=== PATIENT | male | born 1955 | race Two or more races ===

== ENCOUNTER 2017-12-09 15:38 | Inpatient (IN) | payer SELFPAY ==
[2017-12-09] MEDS ORDERED: ONDANSETRON HCL INJ/PF 4 MG/2 ML SDV IV ONE (15:53)
[2017-12-09] MEDS ORDERED: MORPHINE SULFATE 10 MG/ML INJ IV ONE (15:53)
[2017-12-09] MEDS ORDERED: NORMAL SALINE 1000 ML 1,000 ML IV ONE ×2 (15:53→18:56)
--- NOTE | 2017-12-09 15:54 | ER Document Report ---
ED General - General Stated Complaint: FALL/LEG PAIN Time Seen by Provider: 12/09/17 15:51 TRAVEL OUTSIDE OF THE [place] IN LAST 30 DAYS: No - HPI Notes: Patient is a 62-year-old male no significant past medical history aside from a bowel surgery when he was in the who presents to the ED complaining of right hip pain 2 days status post fall. Patient states that he tripped over a pipe and fell forward over a cabinet. Patient states he did not hit his head. Patient states that he was able to get assistance to his couch where he remained for the next couple days thinking that the pain would improve. EMS was called today and they noted that he was sitting in his own feces because he cannot get up to go the bathroom. Patient does live with his and 2 sons. Patient states that he did drink 1.5-2 beers today, but has not been eating or drinking anything else. He has not had any numbness or tingling associated. Denies any drug allergies. Denies any headache, fever, head injury, neck pain, changes in vision/speech/mentation/hearing, URI, sore throat, chest pain, palpitations, syncope, cough, shortness of breath, wheeze, dyspnea, abdominal pain, nausea/vomiting/diarrhea, urinary retention, dysuria, hematuria, loss of control of bowel or bladder, numbness/tingling, saddle anesthesia, muscle paralysis, or rash. Past Medical History - Social History Smoking Status: Current Every Day Smoker Family History: Reviewed & Not Pertinent Past Surgical History: Reports: Hx Bowel Surgery - 12 ft of bowel removed Review of Systems - Review of Systems -: Yes All other systems reviewed and negative Physical Exam - Notes Notes: PHYSICAL EXAMINATION: GENERAL: no acute distress. A&Ox4. Answers questions appropriately. Feces within his clothes, foul smell. HEAD: Atraumatic, normocephalic. EYES: Pupils equal round and reactive to light, extraocular movements intact, sclera anicteric, conjunctiva are normal. ENT: Nares patent and without discharge. oropharynx clear without exudates. No tonsilar hypertrophy or erythema. Moist mucous membranes. NECK: Normal range of motion, supple without lymphadenopathy LUNGS: Breath sounds clear to auscultation bilaterally and equal. No wheezes rales or rhonchi. HEART: Regular rate and rhythm without murmurs, rubs, gallops. ABDOMEN: Soft, nontender, nondistended abdomen. No guarding, no rebound. No masses appreciated. Normal bowel sounds present. No CVA tenderness bilaterally. Musculoskeletal: Rt hip: + deformity and swelling. + tenderness. LROM. Strength decreased due to pain. + mild tenderness to the mid thigh. N/v intact distal. No other bony tenderness to the LE. Extremities: No cyanosis, clubbing, or edema b/l. Peripheral pulses 2+. Capillary refill less than 3 seconds. NEUROLOGICAL: Cranial nerves grossly intact. Normal speech, normal gait. Normal sensory, motor exams (aside from above). PSYCH: Normal mood, normal affect. SKIN: Warm, Dry, normal turgor, no rashes or lesions noted. Course - Re-evaluation Re-evalutation: 12/09/17 15:45 I accompanied patient to radiology upon arrival with EMS noting a deformity to the right hip. Brief exam performed at that time. Extremity remains warm and N/V intact distal with 2+ pulses. + tenderness rt hip. Obvious rt hip fracture noted on raw image in radiology. Formal read pending. 12/09/17 15:55 Labs, IV meds, fluids ordered. 12/09/17 18:07 I did speak with Dr. St regarding this patient who accepted patient for admission to the surgical floor. He does not recommend any other further workup at this time. Pt in agreement with plan. - Laboratory Result Diagrams: 12/09/17 17:03 12/09/17 17:03 Laboratory results interpreted by me: 12/09/17 12/09/17 17:03 17:03 RBC 3.08 L Hgb 11.4 L Hct 32.5 L MCV 106 H MCH 36.9 H RDW 14.6 H Seg Neutrophils % 80.8 H Lymphocytes % 10.3 L Sodium 129.6 L Chloride 92 L Creatinine 0.43 L Direct Bilirubin 0.5 H Discharge - Discharge Clinical Impression: Fracture, intertrochanteric, right femur Qualifiers: Encounter type: initial encounter Fracture type: closed Fracture alignment: nondisplaced Qualified Code(s): S72.144A - Nondisplaced intertrochanteric fracture of right femur, initial encounter for closed fracture Condition: Stable Disposition: ADMITTED INPATIENT Admitting Provider: Surgicalist - Dr. St Unit Admitted: Surgical Floor
--- NOTE | 2017-12-09 16:20 | RADIOLOGY REPORT (SQ) ---
EXAM DESCRIPTION: FEMUR RIGHT COMPLETED DATE/TIME: 12/09/2017 4:11 pm REASON FOR STUDY: mp fall +deformity COMPARISON: None. NUMBER OF VIEWS: Two views. TECHNIQUE: Two radiographic images acquired of the right femur to include hip and knee in at least o ne projection. LIMITATIONS: None. FINDINGS: MINERALIZATION: Normal. BONES: Comminuted intratrochanteric right hip fracture is noted. Mid and distal femur are intact. SOFT TISSUES: No obvious swelling or foreign body. OTHER: No other significant finding. IMPRESSION: Comminuted intratrochanteric right hip fracture. TECHNICAL DOCUMENTATION: JOB ID: [id number] [employer]- All Rights Reserved Reading location - IP/workstation name: [email or web address]
--- NOTE | 2017-12-09 16:21 | RADIOLOGY REPORT (SQ) ---
EXAM DESCRIPTION: HIP RIGHT AP/LATERAL COMPLETED DATE/TIME: 12/09/2017 4:11 pm REASON FOR STUDY: mp s/p fall with deformity COMPARISON: None. NUMBER OF VIEWS: Two views. TECHNIQUE: AP pelvis and additional frog-leg view of the right hip. LIMITATIONS: None. FINDINGS: MINERALIZATION: Normal. RIGHT HIP: Intertrochanteric fracture. LEFT HIP: No fracture or dislocation. No worrisome bone lesions. PUBIS AND ISCHIUM: No fracture. PELVIS: No fracture. SACRUM: No fracture or dislocation. No worrisome bone lesions. LOWER LUMBAR SPINE: No fracture or dislocation. No worrisome bone lesions. No significant disc disea se. SOFT TISSUES: No findings. OTHER: No other significant finding. IMPRESSION: Intertrochanteric fracture of the right hip. TECHNICAL DOCUMENTATION: JOB ID: [id number] [employer]- All Rights Reserved Reading location - IP/workstation name: [email or web address]
--- NOTE | 2017-12-09 16:33 | RADIOLOGY REPORT (SQ) ---
EXAM DESCRIPTION: CHEST SINGLE VIEW COMPLETED DATE/TIME: 12/09/2017 4:22 pm REASON FOR STUDY: pre-op COMPARISON: None. EXAM PARAMETERS: NUMBER OF VIEWS: One view. TECHNIQUE: Single frontal radiographic view of the chest acquired. RADIATION DOSE: NA LIMITATIONS: None. FINDINGS: LUNGS AND PLEURA: No opacities, masses or pneumothorax. No pleural effusion. MEDIASTINUM AND HILAR STRUCTURES: No masses. Contour normal. HEART AND VASCULAR STRUCTURES: Heart normal in size. Normal vasculature. BONES: No acute findings. HARDWARE: None in the chest. OTHER: No other significant finding. IMPRESSION: NO ACUTE RADIOGRAPHIC FINDING IN THE CHEST. TECHNICAL DOCUMENTATION: JOB ID: [id number] [employer]- All Rights Reserved Reading location - IP/workstation name: [email or web address]
[2017-12-09 17:38] LABS: ABSOLUTE BASOPHILS # (AUTO) 0.1 10^3/uL (0.0-0.2); ABSOLUTE MONOCYTES (AUTO) 0.7 10^3/uL (0.1-1.4); ABSOLUTE NEUT (AUTO) 7.5 10^3/uL (1.7-8.2); BASOPHILS % (AUTO) 0.7 % (0-2); EOSINOPHILS % (AUTO) 0.3 % (0-6); HEMATOCRIT 32.5 % (37.9-51.0); HEMOGLOBIN 11.4 g/dL (13.5-17.0); LYMPHOCYTES % (AUTO) 10.3 % (13-45); MEAN CORPUSCULAR HEMOGLOBIN 36.9 pg (27.0-33.4); MEAN CORPUSCULAR HGB CONC 34.9 g/dL (32.0-36.0); MEAN CORPUSCULAR VOLUME 106 fl (80-97); MONOCYTES % (AUTO) 7.9 % (3-13); PLATELET COUNT 280 10^3/uL (150-450); RED BLOOD COUNT 3.08 10^6/uL (4.35-5.55); RED CELL DISTRIBUTION WIDTH 14.6 % (11.5-14.0); SEGMENTED NEUTROPHILS % (AUTO) 80.8 % (42-78); TOTAL CELLS COUNTED % (AUTO) 100 %; WHITE BLOOD COUNT 9.3 10^3/uL (4.0-10.5)
[2017-12-09 17:46] LABS: INTERNATIONAL RATION (INR) 0.94
[2017-12-09 17:47] LABS: PARTIAL THROMBOPLASTIN TIME 29.2 SEC (23.5-35.8)
--- NOTE | 2017-12-09 17:53 | EKG REPORT ---
SEVERITY:- BORDERLINE ECG - SINUS TACHYCARDIA BORDERLINE LEFT AXIS DEVIATION LOW VOLTAGE IN FRONTAL LEADS : Confirmed by: Brian Sanchez MD 09-Dec-2017 17:52:57
[2017-12-09 17:56] LABS: ALANINE AMINOTRANSFERASE 25 U/L (21-72); ALBUMIN 3.7 g/dL (3.5-5.0); ALCOHOL 37 mg/dL (NONE DETECTED); ALKALINE PHOSPHATASE 73 U/L (38-126); ANION GAP 14 (5-19); ASPARTATE AMINO TRANSFERASE 29 U/L (17-59); BILIRUBIN,DIRECT 0.5 mg/dL (0.0-0.4); BILIRUBIN,TOTAL 1.2 mg/dL (0.2-1.3); BLOOD UREA NITROGEN 7 mg/dL (7-20); CALCIUM 8.8 mg/dL (8.4-10.2); CARBON DIOXIDE 24 mmol/L (22-30); CHLORIDE 92 mmol/L (98-107); GLUCOSE 100 mg/dL (75-110); POTASSIUM 3.9 mmol/L (3.6-5.0); SODIUM 129.6 mmol/L (137-145); TOTAL PROTEIN 7.4 g/dL (6.3-8.2)
[2017-12-09] MEDS ORDERED: HYDROMORPHONE HCL INJ/PF 2 MG/ML AMPULE IV ONE (18:10)
[2017-12-09 18:42] LABS: APPEARANCE,URINE CLEAR; BILIRUBIN,URINE SMALL (NEGATIVE); COLOR,URINE AMBER; GLUCOSE, URINE NEGATIVE (NEGATIVE); KETONES,URINE TRACE mg/dL (NEGATIVE); LEUKOCYTE ESTERASE,URINE NEGATIVE (NEGATIVE); NITRITE,URINE NEGATIVE (NEGATIVE); PROTEIN,URINE NEGATIVE (NEGATIVE)
[2017-12-09] MEDS ORDERED: NORMAL SALINE 1000 ML 1,000 ML IV PRN (18:56)
[2017-12-09 18:58] LABS: URINE AMPHETAMINES SCREEN NEGATIVE; URINE BARBITURATES SCREEN NEGATIVE; URINE BENZODIAZEPINES SCREEN NEGATIVE; URINE COCAINE SCREEN NEGATIVE; URINE MARIJUANA (THC) SCREEN NEGATIVE; URINE METHADONE SCREEN NEGATIVE; URINE PHENCYCLIDINE SCREEN NEGATIVE
[2017-12-09] MEDS ORDERED: ONDANSETRON 4 MG TAB.RAPDIS SL PRN (20:50)
[2017-12-10] MEDS: RINGERS SOLUTION,LACTATED 1,000 ML IV PRN ×3 (00:50→19:56)
--- NOTE | 2017-12-10 07:05 | PDOC H&P ---
History of Present Illness Admission Date/PCP: 12/09/17 18:25 History of Present Illness: CIRILO VIEIRA is a 62 year old male Patient is a 62-year-old white male with a noncontributory past medical history who tripped and fell onto the ground and sustained a right hip injury. 2 days later he was brought to the emergency room where a right intratrochanteric femur fracture was identified. He is admitted to the orthopedic service for fracture management. Past Medical History Medical History: None Psychiatric Medical History: Denies: Depression Past Surgical History Past Surgical History: Reports: None Social History Information Source: Patient, [facility] Records Smoking Status: Current Every Day Smoker Number of Years Smokin Last Time Smoked: 12/09/2017 Frequency of Alcohol Use: Occasional Hx Recreational Drug Use: No - denies Hx Prescription Drug Abuse: No - denies Family History Family History: Reviewed & Not Pertinent Parental Family History Reviewed: No Children Family History Reviewed: No Sibling(s) Family History Reviewed.: No Medication/Allergy Home Medications: No Home Medications 12/09/17 Allergies/Adverse Reactions: No Known Allergies Allergy (Unverified 12/09/17 19:08) Review of Systems All systems: as per [facility] Physical Exam Vital Signs: Temp Pulse Resp BP Pulse Ox 36.8 C 126 H 18 125/85 98 12/09/17 23:09 12/09/17 23:09 12/09/17 23:09 12/09/17 23:09 12/09/17 23:09 Intake & Output 12/09/17 12/10/17 12/11/17 06:59 06:59 06:59 Intake Total 1360 Output Total 550 Balance 810 Weight 68.8 kg Physical Exam: The patient is a thin disheveled appearing middle-aged white male lying in a hospital bed in minor distress. Right lower extremity has a leg length discrepancy and angular deformity. Distal neurovascular examination is intact. General appearance: PRESENT: mild distress Head exam: PRESENT: normocephalic Respiratory exam: PRESENT: unlabored Cardiovascular exam: PRESENT: RRR Pulses: PRESENT: +1 pedal pulses bilateral Vascular exam: PRESENT: normal capillary refill GI/Abdominal exam: PRESENT: soft Rectal exam: PRESENT: deferred Musculoskeletal exam: PRESENT: other - Lower extremity leg length discrepancy and rotational deformity Neurological exam: PRESENT: alert, awake, oriented to person, oriented to place , oriented to time, oriented to situation. ABSENT: motor sensory deficit Psychiatric exam: PRESENT: appropriate affect, normal mood. ABSENT: homicidal ideation, suicidal ideation Skin exam: PRESENT: dry, intact, warm. ABSENT: cyanosis, rash Results Impressions: Femur X-Ray 12/09/17 00:00 IMPRESSION: Comminuted intratrochanteric right hip fracture. Hip/Pelvis X-Ray 12/09/17 00:00 IMPRESSION: Intertrochanteric fracture of the right hip. Chest X-Ray 12/09/17 15:51 IMPRESSION: NO ACUTE RADIOGRAPHIC FINDING IN THE CHEST. Status: Imported from PACS Assessment & Plan - Diagnosis (1) Fracture, intertrochanteric, right femur Qualifiers: Encounter type: initial encounter Fracture type: closed Fracture alignment: nondisplaced Qualified Code(s): S72.144A - Nondisplaced intertrochanteric fracture of right femur, initial encounter for closed fracture Is this a current diagnosis for this admission?: Yes Plan: Plan for an open reduction internal fixation under choice anesthesia - Time Time Spent: 50 to 70 Minutes Anticipated discharge: Home with Homehealth Within: within 24 hours
[2017-12-10] MEDS ORDERED: CEFAZOLIN 2 GM/D5W RTU 2 GM/50 ML RTUPB IV PRN (07:14)
[2017-12-10] MEDS ORDERED: CEFAZOLIN SODIUM 2 GM in DEXTROSE 5%-WATER 100 ML IV PRN (07:16)
[2017-12-10] MEDS: MORPHINE SULFATE 10 MG/ML INJ IV PRN ×3 (07:50→19:49)
[2017-12-10] MEDS ORDERED: MIDAZOLAM 2 MG/2 ML INJ ONE (09:24)
[2017-12-10] MEDS ORDERED: PROPOFOL INJ 200 MG/20 ML VIAL IV ONE (09:25)
[2017-12-10] MEDS ORDERED: FENTANYL CITRATE INJ/PF 100 MCG/2 ML AMPUL ONE (09:25)
[2017-12-10] MEDS ORDERED: EPHEDRINE SULFATE INJ 50 MG/1 ML AMPULE ONE (09:26)
[2017-12-10] MEDS ORDERED: BUPIVACAINE HCL/DEX-WATER/PF 15 MG/2 ML AMPULE ONE (09:28)
--- NOTE | 2017-12-10 10:46 | Operative Report ---
Operative Report DATE OF SURGERY: 12/10/17 PREOPERATIVE DIAGNOSIS: Right intertrochanteric femur fracture OPERATION: ORIF right hip fracture SURGEON: ODILON ESCAMILLA ANESTHESIA: Spinal ESTIMATED BLOOD LOSS: 50 PROCEDURE: With the patient supine on the operative table the right lower extremities prepped and draped in a sterile fashion. Percutaneously pin is placed through the greater trochanter down the femoral diaphysis. This position was checked with fluoroscopy and felt to be adequate. Combined reamer was then used to fashion a cortical opening. A ball-tipped guide see placed down the femur and the femoral depth measured to be 420 mm. Subsequently [employer] gamma 3 nail 420 mm x 11 mm x 1 25 is advanced over the ball-tipped guide see to an appropriate depth the proximal interlock. A 100 mm proximal interlock is placed. It is locked from above. A 57.5 mm distal interlock was placed under fluoroscopic guidance. The fracture reduction and the hardware placement are again checked fluoroscopically and felt to be adequate. The wounds are irrigated. The closure was interrupted Vicryl followed by alonzo. A sterile compressive dressing was applied and patient's return to PACU in satisfactory condition.
[2017-12-10] MEDS ORDERED: RINGERS SOLUTION,LACTATED 1,000 ML IV PRN (10:57)
[2017-12-10] MEDS ORDERED: FENTANYL CITRATE INJ/PF 100 MCG/2 ML AMPUL IV PRN ×3 (11:03)
[2017-12-10] MEDS ORDERED: OXYCODONE-ACETAMINOPHEN 5-325 MG TABLET PO PRN ×2 (11:03)
[2017-12-10] MEDS ORDERED: DIPHENHYDRAMINE HCL 50 MG/ML VIAL IV PRN (11:03)
[2017-12-10] MEDS ORDERED: PROMETHAZINE HCL INJ 25 MG/1 ML VIAL IV PRN ×2 (11:03)
[2017-12-10] MEDS ORDERED: MEPERIDINE HCL/PF INJ 25 MG/1 ML DISP.SYRIN IV PRN (11:03)
--- NOTE | 2017-12-10 12:59 | RADIOLOGY REPORT (SQ) ---
EXAM DESCRIPTION: NO CHG FLUORO; HIP IN OPERATING RM COMPLETED DATE/TIME: 12/10/2017 12:27 pm REASON FOR STUDY: ORIF RT HIP ASST WITH FLUORO IN OR COMPARISON: 12/09/2017. FLUOROSCOPY TIME: 0.9 minutes. 5 images saved to PACS. TECHNIQUE: Intra-operative images acquired during surgical procedure to evaluate progress. NUMBER OF IMAGES: 5 images. LIMITATIONS: None. FINDINGS: Surgical fixation of the right hip fracture with placement of hardware. IMPRESSION: IMAGE(S) OBTAINED DURING PROCEDURE. COMMENT: Quality ID 145: Final reports for procedures using fluoroscopy that document radiation exp osure indices, or exposure time and number of fluorographic images (if radiation exposure indices are not available) Please consult full operative report of the attending physician for description of the procedure. TECHNICAL DOCUMENTATION: JOB ID: [id number] [employer]- All Rights Reserved Reading location - IP/workstation name: [email or web address]
--- NOTE | 2017-12-10 12:59 | RADIOLOGY REPORT (SQ) ---
EXAM DESCRIPTION: NO CHG FLUORO; HIP IN OPERATING RM COMPLETED DATE/TIME: 12/10/2017 12:27 pm REASON FOR STUDY: ORIF RT HIP ASST WITH FLUORO IN OR COMPARISON: 12/09/2017. FLUOROSCOPY TIME: 0.9 minutes. 5 images saved to PACS. TECHNIQUE: Intra-operative images acquired during surgical procedure to evaluate progress. NUMBER OF IMAGES: 5 images. LIMITATIONS: None. FINDINGS: Surgical fixation of the right hip fracture with placement of hardware. IMPRESSION: IMAGE(S) OBTAINED DURING PROCEDURE. COMMENT: Quality ID [id number]: Final reports for procedures using fluoroscopy that document radiation exp osure indices, or exposure time and number of fluorographic images (if radiation exposure indices are not available) Please consult full operative report of the attending physician for description of the procedure. TECHNICAL DOCUMENTATION: JOB ID: [id number] [employer]- All Rights Reserved Reading location - IP/workstation name: [email or web address]
[2017-12-10] MEDS ORDERED: IBUPROFEN 800 MG in NORMAL SALINE 250 ML IV SCH (14:00)
[2017-12-10] MEDS: IBUPROFEN 800 MG in DEXTROSE 5%-WATER 250 ML IV SCH ×2 (14:51→22:23)
[2017-12-10] MEDS ORDERED: OXYCODONE HCL IR 5 MG TABLET ONE (15:09)
[2017-12-10] MEDS: CEFAZOLIN SODIUM 2 GM in DEXTROSE 5%-WATER 100 ML IV SCH ×2 (15:10→21:06)
[2017-12-10] MEDS: OXYCODONE HCL IR 5 MG TABLET PO PRN (23:53)
[2017-12-11] MEDS: OXYCODONE HCL IR 5 MG TABLET PO PRN ×2 (05:56→18:56)
[2017-12-11] MEDS: IBUPROFEN 800 MG in DEXTROSE 5%-WATER 250 ML IV SCH ×3 (05:56→21:24)
[2017-12-11 06:07] LABS: HEMOGLOBIN 10.1 g/dL (13.5-17.0); MEAN CORPUSCULAR HEMOGLOBIN 38.1 pg (27.0-33.4); MEAN CORPUSCULAR HGB CONC 36.1 g/dL (32.0-36.0); MEAN CORPUSCULAR VOLUME 106 fl (80-97); PLATELET COUNT 242 10^3/uL (150-450); RED BLOOD COUNT 2.65 10^6/uL (4.35-5.55); RED CELL DISTRIBUTION WIDTH 15.7 % (11.5-14.0); WHITE BLOOD COUNT 7.5 10^3/uL (4.0-10.5)
[2017-12-11 06:25] LABS: ANION GAP 8 (5-19); BLOOD UREA NITROGEN 5 mg/dL (7-20); CALCIUM 8.3 mg/dL (8.4-10.2); CARBON DIOXIDE 25 mmol/L (22-30); CHLORIDE 99 mmol/L (98-107); GLUCOSE 115 mg/dL (75-110); POTASSIUM 3.9 mmol/L (3.6-5.0); SODIUM 132.2 mmol/L (137-145)
--- NOTE | 2017-12-11 07:21 | PDOC PROGRESS REPORT ---
Subjective Progress Note for:: 12/11/17 Reason For Visit: RIGHT HIP FRACTURE 62-year-old white male postop day 1 from open reduction internal fixation of a right intertrochanteric femur fracture. Patient with minimal complaints this morning. No physical therapy yesterday. Physical Exam Vital Signs: Temp Pulse Resp BP Pulse Ox 37.5 C 114 H 18 120/77 96 12/10/17 20:06 12/10/17 23:41 12/10/17 23:41 12/10/17 23:41 12/10/17 23:41 Intake & Output 12/10/17 12/11/17 12/12/17 06:59 06:59 06:59 Intake Total 1360 6165 Output Total 550 1520 Balance 810 4645 Weight 68.8 kg 67.4 kg General appearance: PRESENT: no acute distress, mild distress Head exam: PRESENT: normocephalic Respiratory exam: PRESENT: unlabored Cardiovascular exam: PRESENT: RRR Pulses: PRESENT: +1 pedal pulses bilateral Vascular exam: PRESENT: normal capillary refill GI/Abdominal exam: PRESENT: soft Rectal exam: PRESENT: deferred Extremities exam: PRESENT: other - Right lower extremity dressings with minor drainage. Leg lengths are equal. Distal neurovascular examination is intact. Neurological exam: PRESENT: alert, awake, oriented to person, oriented to place , oriented to time, oriented to situation. ABSENT: motor sensory deficit Psychiatric exam: PRESENT: agitated Skin exam: PRESENT: dry, intact, warm. ABSENT: cyanosis, rash Results Laboratory Results: 12/11/17 05:50 12/11/17 05:50 12/11/17 12/11/17 05:50 05:50 WBC 7.5 RBC 2.65 L Hgb 10.1 L Hct 28.0 L MCV 106 H MCH 38.1 H MCHC 36.1 H RDW 15.7 H Plt Count 242 Sodium 132.2 L Potassium 3.9 Chloride 99 Carbon Dioxide 25 Anion Gap 8 BUN 5 L Creatinine 0.40 L Est GFR ( Amer) > 60 Est GFR (Non-Af Amer) > 60 Glucose 115 H Calcium 8.3 L Impressions: Femur X-Ray 12/09/17 00:00 IMPRESSION: Comminuted intratrochanteric right hip fracture. Hip/Pelvis X-Ray 12/09/17 00:00 IMPRESSION: Intertrochanteric fracture of the right hip. Chest X-Ray 12/09/17 15:51 IMPRESSION: NO ACUTE RADIOGRAPHIC FINDING IN THE CHEST. Fluoroscopy 12/10/17 00:00 IMPRESSION: IMAGE(S) OBTAINED DURING PROCEDURE. Hip X-Ray 12/10/17 00:00 IMPRESSION: IMAGE(S) OBTAINED DURING PROCEDURE. Status: Imported from PACS Assessment & Plan - Diagnosis (1) Fracture, intertrochanteric, right femur Qualifiers: Encounter type: initial encounter Fracture type: closed Fracture alignment: nondisplaced Qualified Code(s): S72.144A - Nondisplaced intertrochanteric fracture of right femur, initial encounter for closed fracture Is this a current diagnosis for this admission?: Yes Plan: Patient be seen by physical therapy and mobilized on a weightbearing as tolerated basis. - Time Time Spent with patient: 15-24 minutes Anticipated discharge: Home with Homehealth Within: within 24 hours
[2017-12-11] MEDS: MORPHINE SULFATE 10 MG/ML INJ IV PRN ×2 (08:36→10:12)
[2017-12-11] MEDS: ASPIRIN 81 MG TABLET, CHEWABLE PO SCH (10:13)
[2017-12-12] MEDS: MORPHINE SULFATE 10 MG/ML INJ IV PRN ×2 (03:38→15:39)
[2017-12-12] MEDS: IBUPROFEN 800 MG in DEXTROSE 5%-WATER 250 ML IV SCH (05:15)
[2017-12-12] MEDS: OXYCODONE HCL IR 5 MG TABLET PO PRN ×2 (08:50→20:48)
--- NOTE | 2017-12-12 09:22 | PDOC PROGRESS REPORT ---
Subjective Progress Note for:: 12/12/17 Subjective:: Patient lying in bed company. States she still has pain in his right hip. Denies issues overnight. Denies chest pain or shortness of breath. Reason For Visit: RIGHT HIP FRACTURE Physical Exam Vital Signs: Temp Pulse Resp BP Pulse Ox 99.6 F 99 16 124/79 97 12/11/17 23:22 12/11/17 23:22 12/11/17 23:22 12/11/17 23:22 12/11/17 23:22 Intake & Output 12/11/17 12/12/17 12/13/17 06:59 06:59 06:59 Intake Total 6178 1906 Output Total 1520 1875 Balance 4645 31 Weight 67.4 kg 67.8 kg Musculoskeletal exam: PRESENT: other - Right lower extremity: Dressing clean/dry /intact no erythema or drainage. No calf tenderness. Mild thigh swelling. Intact plantar flexion/dorsiflexion. Dorsalis pedis pulse 2+. No sensory deficits. Results Laboratory Results: 12/11/17 05:50 12/11/17 05:50 Impressions: Femur X-Ray 12/09/17 00:00 IMPRESSION: Comminuted intratrochanteric right hip fracture. Hip/Pelvis X-Ray 12/09/17 00:00 IMPRESSION: Intertrochanteric fracture of the right hip. Chest X-Ray 12/09/17 15:51 IMPRESSION: NO ACUTE RADIOGRAPHIC FINDING IN THE CHEST. Fluoroscopy 12/10/17 00:00 IMPRESSION: IMAGE(S) OBTAINED DURING PROCEDURE. Hip X-Ray 12/10/17 00:00 IMPRESSION: IMAGE(S) OBTAINED DURING PROCEDURE. Assessment & Plan - Diagnosis (1) Fracture, intertrochanteric, right femur Qualifiers: Encounter type: initial encounter Fracture type: closed Fracture alignment: nondisplaced Qualified Code(s): S72.144A - Nondisplaced intertrochanteric fracture of right femur, initial encounter for closed fracture Is this a current diagnosis for this admission?: Yes Plan: Postop day #1 status post right hip cephalo-medullary nail 1. Physical therapy weightbearing as tolerated 2. Pain control 3. Aspirin for DVT prophylaxis 4. Discharge planning patient may require longterm facility given limited mobilization up to this point.
[2017-12-12] MEDS: ASPIRIN 81 MG TABLET, CHEWABLE PO SCH (11:03)
[2017-12-13] MEDS: MORPHINE SULFATE 10 MG/ML INJ IV PRN ×4 (00:21→13:28)
[2017-12-13] MEDS: ASPIRIN 81 MG TABLET, CHEWABLE PO SCH (10:16)
--- NOTE | 2017-12-13 13:43 | PDOC PROGRESS REPORT ---
Subjective Progress Note for:: 12/13/17 Subjective:: Patient lying in bed company. States she still has pain in his right hip. Denies issues overnight. Denies chest pain or shortness of breath. Reason For Visit: RIGHT HIP FRACTURE Physical Exam Vital Signs: Temp Pulse Resp BP Pulse Ox 99.0 F 99 18 113/53 L 96 12/13/17 10:59 12/13/17 10:59 12/13/17 10:59 12/13/17 10:59 12/13/17 10:59 Intake & Output 12/12/17 12/13/17 12/14/17 06:59 06:59 06:59 Intake Total 1906 218 Output Total 1875 1800 Balance 31 -1582 Weight 67.8 kg 75.8 kg Musculoskeletal exam: PRESENT: other - Right lower extremity: Moderate thigh swelling. Bloody tinged drainage along the dressing. Intact plantar flexion/ dorsiflexion. No calf tenderness. No sensory deficits. Dorsalis pedis pulse 2 +. Results Laboratory Results: 12/11/17 05:50 12/11/17 05:50 Impressions: Femur X-Ray 12/09/17 00:00 IMPRESSION: Comminuted intratrochanteric right hip fracture. Hip/Pelvis X-Ray 12/09/17 00:00 IMPRESSION: Intertrochanteric fracture of the right hip. Chest X-Ray 12/09/17 15:51 IMPRESSION: NO ACUTE RADIOGRAPHIC FINDING IN THE CHEST. Fluoroscopy 12/10/17 00:00 IMPRESSION: IMAGE(S) OBTAINED DURING PROCEDURE. Hip X-Ray 12/10/17 00:00 IMPRESSION: IMAGE(S) OBTAINED DURING PROCEDURE. Assessment & Plan - Diagnosis (1) Fracture, intertrochanteric, right femur Qualifiers: Encounter type: initial encounter Fracture type: closed Fracture alignment: nondisplaced Qualified Code(s): S72.144A - Nondisplaced intertrochanteric fracture of right femur, initial encounter for closed fracture Is this a current diagnosis for this admission?: Yes Plan: Postop day #1 status post right hip cephalo-medullary nail 1. Physical therapy weightbearing as tolerated 2. Pain control 3. Aspirin for DVT prophylaxis 4. Discharge planning patient may require [facility] facility given limited mobilization up to this point.
[2017-12-13] MEDS: OXYCODONE HCL IR 5 MG TABLET PO PRN (20:14)
[2017-12-14] MEDS: MORPHINE SULFATE 10 MG/ML INJ IV PRN ×2 (00:29→07:28)
[2017-12-14] MEDS: OXYCODONE HCL IR 5 MG TABLET PO PRN ×3 (03:44→17:27)
--- NOTE | 2017-12-14 06:56 | PDOC PROGRESS REPORT ---
Subjective Progress Note for:: 12/14/17 Reason For Visit: RIGHT HIP FRACTURE 62-year-old white male postop day 4 status post intramedullary fixation of her right intertrochanteric femur fracture. Patient with limited progress with physical therapy secondary to pain issues. Physical Exam Vital Signs: Temp Pulse Resp BP Pulse Ox 37.4 C 96 15 124/75 96 12/14/17 00:07 12/14/17 00:07 12/14/17 00:07 12/14/17 00:07 12/14/17 00:07 Intake & Output 12/12/17 12/13/17 12/14/17 06:59 06:59 06:59 Intake Total 9318 903 7682 Output Total 1875 1800 2300 Balance 26 -1742 -3389 Weight 67.8 kg 75.8 kg 72.6 kg General appearance: PRESENT: no acute distress Head exam: PRESENT: normocephalic Respiratory exam: PRESENT: unlabored Cardiovascular exam: PRESENT: RRR Vascular exam: PRESENT: normal capillary refill GI/Abdominal exam: PRESENT: soft Rectal exam: PRESENT: deferred Musculoskeletal exam: PRESENT: other - Leg lengths are equal. Distal neurovascular examination is intact. Passive range of motion of the right lower extremity results in significant discomfort. Neurological exam: PRESENT: alert, awake, oriented to person, oriented to place , oriented to time, oriented to situation. ABSENT: motor sensory deficit Psychiatric exam: PRESENT: appropriate affect, normal mood. ABSENT: homicidal ideation, suicidal ideation Skin exam: PRESENT: dry, intact, warm. ABSENT: cyanosis, rash Results Laboratory Results: 12/11/17 05:50 12/11/17 05:50 Impressions: Femur X-Ray 12/09/17 00:00 IMPRESSION: Comminuted intratrochanteric right hip fracture. Hip/Pelvis X-Ray 12/09/17 00:00 IMPRESSION: Intertrochanteric fracture of the right hip. Chest X-Ray 12/09/17 15:51 IMPRESSION: NO ACUTE RADIOGRAPHIC FINDING IN THE CHEST. Fluoroscopy 12/10/17 00:00 IMPRESSION: IMAGE(S) OBTAINED DURING PROCEDURE. Hip X-Ray 12/10/17 00:00 IMPRESSION: IMAGE(S) OBTAINED DURING PROCEDURE. Status: Imported from PACS Assessment & Plan - Diagnosis (1) Fracture, intertrochanteric, right femur Qualifiers: Encounter type: initial encounter Fracture type: closed Fracture alignment: nondisplaced Qualified Code(s): S72.144A - Nondisplaced intertrochanteric fracture of right femur, initial encounter for closed fracture Is this a current diagnosis for this admission?: Yes Plan: 62-year-old white male status post intramedullary nailing of a right intertrochanteric femur fracture. Limited progress with physical therapy postoperatively. Anticipate the need for residential facility when bed is available. - Time Time Spent with patient: 15-24 minutes Anticipated discharge: SNF Within: when bed available
[2017-12-14] MEDS: ASPIRIN 81 MG TABLET, CHEWABLE PO SCH (10:04)
[2017-12-15] MEDS: OXYCODONE HCL IR 5 MG TABLET PO PRN ×3 (01:11→16:35)
--- NOTE | 2017-12-15 06:36 | PDOC PROGRESS REPORT ---
Subjective Progress Note for:: 12/15/17 Reason For Visit: RIGHT HIP FRACTURE 62-year-old white male status post ORIF of a right intratrochanteric femur fracture with a slow postoperative recovery of function. Physical Exam Vital Signs: Temp Pulse Resp BP Pulse Ox 37.3 C 92 17 110/76 99 12/14/17 23:10 12/14/17 23:10 12/14/17 23:10 12/14/17 23:10 12/14/17 23:10 Intake & Output 12/13/17 12/14/17 12/15/17 06:59 06:59 06:59 Intake Total 218 1123 1216 Output Total 1800 2300 1350 Balance -1582 -1177 -134 Weight 75.8 kg 72.6 kg General appearance: PRESENT: mild distress Head exam: PRESENT: normocephalic Respiratory exam: PRESENT: unlabored Cardiovascular exam: PRESENT: RRR Pulses: PRESENT: +1 pedal pulses bilateral Vascular exam: PRESENT: normal capillary refill Extremities exam: PRESENT: other - Right lower extremity dressings clean dry and intact. Leg lengths are equal. Distal neurovascular examination is intact. Neurological exam: PRESENT: alert, awake, oriented to person, oriented to place , oriented to time, oriented to situation. ABSENT: motor sensory deficit Psychiatric exam: PRESENT: appropriate affect, normal mood. ABSENT: homicidal ideation, suicidal ideation Skin exam: PRESENT: dry, intact, warm. ABSENT: cyanosis, rash Results Laboratory Results: 12/11/17 05:50 12/11/17 05:50 Impressions: Femur X-Ray 12/09/17 00:00 IMPRESSION: Comminuted intratrochanteric right hip fracture. Hip/Pelvis X-Ray 12/09/17 00:00 IMPRESSION: Intertrochanteric fracture of the right hip. Chest X-Ray 12/09/17 15:51 IMPRESSION: NO ACUTE RADIOGRAPHIC FINDING IN THE CHEST. Fluoroscopy 12/10/17 00:00 IMPRESSION: IMAGE(S) OBTAINED DURING PROCEDURE. Hip X-Ray 12/10/17 00:00 IMPRESSION: IMAGE(S) OBTAINED DURING PROCEDURE. Status: Imported from PACS Assessment & Plan - Diagnosis (1) Fracture, intertrochanteric, right femur Qualifiers: Encounter type: initial encounter Fracture type: closed Fracture alignment: nondisplaced Qualified Code(s): S72.144A - Nondisplaced intertrochanteric fracture of right femur, initial encounter for closed fracture Is this a current diagnosis for this admission?: Yes Plan: Patient with a slow functional recovery recovery and certainly not in a position to consider discharge home at this point in time. Other discharge plans are difficult because of funding issues. - Time Time Spent with patient: 15-24 minutes Anticipated discharge: Home Within: Other
[2017-12-15] MEDS: ASPIRIN 81 MG TABLET, CHEWABLE PO SCH (09:34)
[2017-12-15] MEDS: MORPHINE SULFATE 10 MG/ML INJ IV PRN (23:20)
[2017-12-16] MEDS: ASPIRIN 81 MG TABLET, CHEWABLE PO SCH (09:53)
[2017-12-16] MEDS: ACETAMINOPHEN 325 MG TABLET PO PRN ×2 (09:53→17:55)
[2017-12-16] MEDS: OXYCODONE HCL IR 5 MG TABLET PO PRN ×2 (09:54→17:55)
[2017-12-16] MEDS: MORPHINE SULFATE 10 MG/ML INJ IV PRN (11:41)
[2017-12-17] MEDS: ACETAMINOPHEN 325 MG TABLET PO PRN ×4 (00:47→19:23)
[2017-12-17] MEDS: OXYCODONE HCL IR 5 MG TABLET PO PRN ×4 (00:51→19:24)
--- NOTE | 2017-12-17 06:27 | PDOC PROGRESS REPORT ---
Subjective Progress Note for:: 12/17/17 Reason For Visit: RIGHT HIP FRACTURE 62-year-old white male postop day 7 status post ORIF of a right intertrochanteric femur fracture. Patient making progress with physical therapy at this point. Physical Exam Vital Signs: Temp Pulse Resp BP Pulse Ox 36.8 C 85 17 127/76 H 100 12/16/17 23:17 12/16/17 23:17 12/16/17 23:17 12/16/17 23:17 12/16/17 23:17 Intake & Output 12/15/17 12/16/17 12/17/17 06:59 06:59 06:59 Intake Total 1866 1973 2050 Output Total 2600 670 3650 Balance -734 1303 -1600 Weight 72.5 kg 72.5 kg 73.2 kg General appearance: PRESENT: no acute distress, mild distress Head exam: PRESENT: normocephalic Respiratory exam: PRESENT: unlabored Cardiovascular exam: PRESENT: RRR Pulses: PRESENT: +1 pedal pulses bilateral Vascular exam: PRESENT: normal capillary refill GI/Abdominal exam: PRESENT: soft Rectal exam: PRESENT: deferred Musculoskeletal exam: PRESENT: other - Right lower extremity dressings clean dry and intact. Leg lengths are equal. Neurological exam: PRESENT: alert, awake, oriented to person, oriented to place , oriented to time, oriented to situation. ABSENT: motor sensory deficit Psychiatric exam: PRESENT: appropriate affect, normal mood. ABSENT: homicidal ideation, suicidal ideation Skin exam: PRESENT: dry, intact, warm. ABSENT: cyanosis, rash Results Laboratory Results: 12/11/17 05:50 12/11/17 05:50 Impressions: Femur X-Ray 12/09/17 00:00 IMPRESSION: Comminuted intratrochanteric right hip fracture. Hip/Pelvis X-Ray 12/09/17 00:00 IMPRESSION: Intertrochanteric fracture of the right hip. Chest X-Ray 12/09/17 15:51 IMPRESSION: NO ACUTE RADIOGRAPHIC FINDING IN THE CHEST. Fluoroscopy 12/10/17 00:00 IMPRESSION: IMAGE(S) OBTAINED DURING PROCEDURE. Hip X-Ray 12/10/17 00:00 IMPRESSION: IMAGE(S) OBTAINED DURING PROCEDURE. Status: Imported from PACS Assessment & Plan - Diagnosis (1) Fracture, intertrochanteric, right femur Qualifiers: Encounter type: initial encounter Fracture type: closed Fracture alignment: nondisplaced Qualified Code(s): S72.144A - Nondisplaced intertrochanteric fracture of right femur, initial encounter for closed fracture Is this a current diagnosis for this admission?: Yes Plan: Patient to continue with physical therapy and weightbearing as tolerated basis. Once his functional status is appropriate plan will be for discharge home with home health services - Time Time Spent with patient: 15-24 minutes Anticipated discharge: Home with Homehealth Within: Other
[2017-12-17] MEDS: ASPIRIN 81 MG TABLET, CHEWABLE PO SCH (10:03)
[2017-12-18] MEDS: OXYCODONE HCL IR 5 MG TABLET PO PRN ×3 (01:33→20:40)
--- NOTE | 2017-12-18 08:10 | PDOC DISCHARGE SUMMARY ---
General - Admit/Disc Date/PCP Admission Date/Primary Care Provider: 12/09/17 18:25 Discharge Date: 12/18/17 - Discharge Diagnosis (1) Fracture, intertrochanteric, right femur Is this a current diagnosis for this admission?: Yes - Additional Information Resuscitation Status: Full Code Discharge Diet: As Tolerated, Regular Discharge Activity: Balance Activity w/Rest, No Driving, No tub bath Home Medications: Aspirin [Aspirin 81 mg Chewable Tablet] 81 mg PO DAILY tab.chew 12/18/17 Oxycodone HCl [Oxy-Ir 5 mg Tablet] 5 mg PO Q6HP PRN tablet 12/18/17 History of Present Illness History of Present Illness: Patient fell, sustained a right lower extremity injury which she could not weight-bear. Is brought to the emergency room and diagnosed with a displaced right intertrochanteric femur fracture. Is admitted to the orthopedic service for fracture management. Hospital Course Hospital Course: Patient is taken to the operating room and undergoes an open reduction internal fixation of her right intertrochanteric femur fracture which he tolerates without complication. Postoperatively issues of pain limit his ability to participate in physical therapy and mobilize. He does finally get to a position where he is ambulating 70 feet with a walker on his own. He subsequently for discharge home. Physical Exam Vital Signs: Temp Pulse Resp BP Pulse Ox 36.7 C 89 18 128/68 H 98 12/18/17 07:58 12/18/17 07:58 12/18/17 07:58 12/18/17 07:58 12/18/17 07:58 Intake & Output 12/17/17 12/18/17 12/19/17 06:59 06:59 06:59 Intake Total 2049 2043 Output Total 3650 2950 Balance -1600 -906 Weight 73.2 kg 74.5 kg General appearance: PRESENT: no acute distress, mild distress Head exam: PRESENT: normocephalic Respiratory exam: PRESENT: unlabored Cardiovascular exam: PRESENT: RRR Pulses: PRESENT: +1 pedal pulses bilateral GI/Abdominal exam: PRESENT: soft Rectal exam: PRESENT: deferred Extremities exam: PRESENT: other - Right lower extremity dressings clean dry and intact. Leg lengths are equal. Distal neurovascular examination is intact. Neurological exam: PRESENT: alert, awake, oriented to person, oriented to place , oriented to time, oriented to situation. ABSENT: motor sensory deficit Psychiatric exam: PRESENT: appropriate affect, normal mood. ABSENT: homicidal ideation, suicidal ideation Skin exam: PRESENT: dry, intact, warm. ABSENT: cyanosis, rash Results Laboratory Results: 12/11/17 05:50 12/11/17 05:50 Impressions: Femur X-Ray 12/09/17 00:00 IMPRESSION: Comminuted intratrochanteric right hip fracture. Hip/Pelvis X-Ray 12/09/17 00:00 IMPRESSION: Intertrochanteric fracture of the right hip. Chest X-Ray 12/09/17 15:51 IMPRESSION: NO ACUTE RADIOGRAPHIC FINDING IN THE CHEST. Fluoroscopy 12/10/17 00:00 IMPRESSION: IMAGE(S) OBTAINED DURING PROCEDURE. Hip X-Ray 12/10/17 00:00 IMPRESSION: IMAGE(S) OBTAINED DURING PROCEDURE. Status: Imported from PACS Qualifiers - * PATIENT BEING DISCHARGED WITH ANY OF THE FOLLOWING DIAGNOSIS: No VTE patient discharged on overlapping Therapy?: Yes Plan Discharge Plan: Patient to be discharged home with home health services and DME. Follow-up with Dr. [facility] for surgery in 2 weeks for staple removal. Time Spent: Less than 30 Minutes
[2017-12-18] MEDS: ASPIRIN 81 MG TABLET, CHEWABLE PO SCH (09:25)
[2017-12-19] MEDS: OXYCODONE HCL IR 5 MG TABLET PO PRN ×3 (02:28→15:08)
[2017-12-19] MEDS: ACETAMINOPHEN 325 MG TABLET PO PRN (06:51)
[2017-12-19] MEDS: ASPIRIN 81 MG TABLET, CHEWABLE PO SCH (10:04)
[2017-12-19 14:47] VITALS: BP 124/80
== END 2017-12-19 16:13 | disposition home health service (06) | DRG 482 ==
LOC: ER 15:38 → EH 18:25 → 4N 19:54
PROVIDERS: ADMIT Orthopaedic Surgery; ATTEND Orthopaedic Surgery
PROC: BQ10ZZZ Fluoroscopy of Right Hip (ICD-10-PCS; 2017-12-10)
PROC: 0QS636Z Reposition Right Upper Femur with Intramedullary Internal Fixation Device, Percutaneous Approach (ICD-10-PCS; principal; 2017-12-10 09:45)
DX: S72.144A Nondisplaced intertrochanteric fracture of right femur, initial encounter for closed fracture (principal); W18.31XA Fall on same level due to stepping on an object, initial encounter; Y93.9 Activity, unspecified; Y92.018 Other place in single-family (private) house as the place of occurrence of the external cause; F17.210 Nicotine dependence, cigarettes, uncomplicated; G89.18 Other acute postprocedural pain
CPT/HCPCS: 01230; 36415; 71045; 80048; 80053; 80307; 81001; 85025; 85027; 85610; 85730; 93005; 93010; 96361; 96374; 96375; 99285; C1713; C1769; J0690; J1170; J1741; J2250; J2270; J2405; J2704; J3010; J3490; J7030; J7060; J7120

== ENCOUNTER 2019-01-07 19:37 | Emergency (ER) | payer SELFPAY ==
[2019-01-07] MEDS ORDERED: AMOXICILLIN TR/POT CLAVULANATE 250-125 MG TAB PO ONE (20:10)
[2019-01-07] MEDS ORDERED: DIPH/PERTUSS(ACELL)/TETANUS VAC/PF 0.5 ML SYR (>=10YO) IM ONE (20:10)
[2019-01-07] MEDS ORDERED: AMOXICILLIN TR/POT CLAVULANATE 500-125 MG TAB PO ONE (20:10)
[2019-01-07] MEDS ORDERED: LIDOCAINE 1% INJ-PF (10 MG/ML) 30 ML SDV INJ ONE (20:11)
[2019-01-07] MEDS ORDERED: LIDOCAINE 1% INJ (10 MG/ML) 10 ML MDV INJ ONE (20:11)
[2019-01-07] MEDS ORDERED: MORPHINE SULFATE 10 MG/ML INJ IV ONE (20:32)
--- NOTE | 2019-01-07 21:15 | RADIOLOGY REPORT (SQ) ---
EXAM DESCRIPTION: CT HEAD WITHOUT IV CONTRAST COMPLETED DATE/TME: 01/07/2019 20:10 CLINICAL HISTORY: 63 years, Male, trauma COMPARISON: None. TECHNIQUE: Noncontrast CT of the head was performed. Coronal and sagittal reformations were created. Images stored on PACS. All CT scanners at this facility use dose modulation, iterative reconstruction, and/or weight based dosing when appropriate to reduce radiation dose to as low as reasonably achievable (ALARA). [facility]: Dose Right [facility]: CareDose [facility]: Dose Right [facility]: Teradose 4D [facility]: [employer] LIMITATIONS: None. FINDINGS: Brain parenchyma appears overall normal in attenuation. No acute intracranial hemorrhage, mass effect, or extra-axial fluid is seen. The ventricles and sulcal spaces are moderately enlarged. Globes and orbits show no acute abnormality. The nasal septum is mildly deviated towards the left. Paranasal sinuses and mastoid air cells are otherwise clear. Calcifications are evident about the parasellar carotid arteries. The nasal bone demonstrates remote deformity. No depressed skull fractures. IMPRESSION: No acute intracranial abnormality. Moderate generalized atrophy. TECHNICAL DOCUMENTATION: Quality ID # [id number]: Final reports with documentation of one or more dose reduction techniques (e.g., Automated exposure control, adjustment of the mA and/or kV according to patient size, use of iterative reconstruction technique) copyright 2011 [employer]- All Rights Reserved
--- NOTE | 2019-01-07 21:15 | ER Document Report ---
ED Animal Bite - General Chief Complaint: Dog Bite Stated Complaint: DOG BITE Time Seen by Provider: 01/07/19 19:52 Primary Care Provider: [facility] [NO LOCAL MD] - Follow up in 1 week TRAVEL OUTSIDE OF THE [place] IN LAST 30 DAYS: No - HPI Location of injury: Face, Head Severity of injury: Bitten Onset: Just prior to arrival Severity: Moderate Context of attack: "Unprovoked" attack Type of animal: Dog Appearance of animal: Appeared well Animal captured or known: Yes Animal control notified: Yes Notes: This is a 63-year-old gentleman who presents today with a complaint of a dog bite. Patient states he was his neighbors dog and he knows the dog well. He states he was just trying to urinate when the dog attacked him. He was picking on his head and on his face. Patient states he was brought to the ground by the dog. He denies loss of consciousness. He had been drinking. Animal control was called. Animal control has since according to the dog according to the patient and the nurses. Complains of slight pain. Describes the symptoms as moderate. - Related Data Allergies/Adverse Reactions: No Known Allergies Allergy (Unverified 12/09/17 19:08) Past Medical History - Social History Smoking Status: Current Every Day Smoker Frequency of alcohol use: Heavy Family History: Reviewed & Not Pertinent Patient has suicidal ideation: No Patient has homicidal ideation: No Renal/ Medical History: Denies: Hx Peritoneal Dialysis Psychiatric Medical History: Denies: Hx Depression Past Surgical History: Reports: Hx Bowel Surgery - 12 ft of bowel removed Review of Systems - Review of Systems Constitutional: denies: Fever Gastrointestinal: denies: Abdominal pain Skin: Other - Dog bite Neurological/Psychological: Headaches -: Yes All other systems reviewed and negative Physical Exam - Vital signs Vitals: Temp Pulse Resp BP Pulse Ox 97.9 F 82 18 105/69 96 01/07/19 20:30 01/07/19 20:30 01/07/19 20:30 01/07/19 20:30 01/07/19 20:30 - HEENT Head: Open wounds - There are several lacerations to the patient's scalp. There is also about a 5 cm laceration to the left lower face that extends to the chin. It is gaping., Other - There are multiple lacerations on the face and scalp. There is one that is about 5 cm in the left lower jaw that goes to the left cheek. It is gaping. There are at least 3 smaller open wounds about 1 to 1.5 cm each. There is a 5 cm left scalp laceration. There are 3 other scalp lacerations that are about 3 cm each. Eyes: Normal Pupils: PERRL - Respiratory Respiratory status: No respiratory distress Chest status: Nontender Breath sounds: Normal Chest palpation: Normal - Cardiovascular Rhythm: Regular Heart sounds: Normal auscultation Murmur: No - Abdominal Inspection: Normal Distension: No distension Bowel sounds: Normal Tenderness: Nontender Organomegaly: No organomegaly - Extremities General upper extremity: Nontender, Normal ROM General lower extremity: Nontender, Normal ROM - Skin Skin Temperature: Warm - Facial and scalp lacerations as described in HEENT exam. There is a superficial abrasion on the midsternal and also on the left knee. Skin Moisture: Dry Skin Color: Normal Course - Re-evaluation Re-evalutation: 01/07/19 21:14 Given gaping facial and scalp wounds., I will suture. risks of infection discussed with patient. Will cover with Augmentin. 01/07/19 22:40 Patient is doing well. Laceration sutured given the fact that he was on the face and scalp and gaping. Patient understands the risk of infection. Patient started on Augmentin. Counseled to return immediately if any redness or drainage from the wound. Dog is not the current time so there is no indication for rabies at this time. Patient notes that he will be called with poison control if there is any issues with the dog. He is stable for discharge. - Vital Signs Vital signs: Temp Pulse Resp BP Pulse Ox 97.8 F 85 17 108/63 96 01/07/19 23:23 01/07/19 23:23 01/07/19 23:23 01/07/19 23:23 01/07/19 23:23 Procedures - Laceration/Wound Repair Left Face Wound length (cm): 5 Wound's Depth, Shape: Linear Laceration pre-procedure: Sterile PPE donned, Betadine prep applied, Chloraprep applied, Sterile drapes applied, Shur-Clens applied Anesthetic type: 1% Lidocaine Wound explored: Clean, No foreign body removed Wound Repaired With: Sutures - Wound cleaned thoroughly with iodine and Shur- Clens. Irrigated. Suture Size/Type: 6:0, Prolene Number of Sutures: 10 Left Upper Face Wound length (cm): 4 - 3-4 separate lacerations totaling about 4 centimeters Wound's Depth, Shape: Superficial Laceration pre-procedure: Sterile PPE donned, Betadine prep applied, Shur-Clens applied Anesthetic type: 1% Lidocaine Wound explored: Clean - All the lacerations were thoroughly cleaned with Betadine and Shur-Clens, scrubbed and irrigated very well., No foreign body removed Wound Repaired With: Sutures Suture Size/Type: 6:0, Prolene Number of Sutures: 8 Post-procedure wound care: Sterile dressing applied Complications: No Left Head Wound length (cm): 16 Wound's Depth, Shape: Linear - There are 4 separate lacerations. The longest one is about 5 cm long and gaping. There is one that is 3 cm. Another one 4 cm and another one 4 cm. These are all on the left scalp., Irregular, Flap Laceration pre-procedure: Sterile PPE donned - All laceratoins was not so much trouble scrubbed thoroughly with Shur-Clens, Betadine and saline. Cleaned well., Betadine prep applied, Shur-Clens applied Anesthetic type: 1% Lidocaine Wound explored: Clean, No foreign body removed Wound Repaired With: [place] Number of Sutures: 28 Discharge - Discharge Clinical Impression: Dog bite Qualifiers: Encounter type: initial encounter Qualified Code(s): W54.0XXA - Bitten by dog, initial encounter Facial laceration Qualifiers: Encounter type: initial encounter Qualified Code(s): S01.81XA - Laceration without foreign body of other part of head, initial encounter Scalp laceration Qualifiers: Encounter type: initial encounter Qualified Code(s): S01.01XA - Laceration without foreign body of scalp, initial encounter Condition: Good Disposition: HOME, SELF-CARE Instructions: Animal Bites ([facility]), Antibiotic Ointment Protection ([facility]), Laceration Care ([facility]), Oral Narcotic Medication ([facility]), Prophylactic Antibiotic ([facility]), Tetanus Immunization Given ([facility]) Additional Instructions: Return immediately if any redness or drainage from the wound. Follow-up with your doctor or return to the emergency department in 10 days for suture removal. Animal control notify you if the dog starts acting crazy and if you need rabies. Prescriptions: Tramadol HCl [Ultram 50 mg Tablet] 50 mg PO Q4HP PRN #12 tab PRN Reason: Amox Tr/Potassium Clavulanate [Augmentin 875-125 mg Tablet] 1 tab PO BID #20 tablet [facility]: [facility] [NO LOCAL MD] - Follow up in 1 week
[2019-01-07] MEDS ORDERED: NEOMY/BACITRAC ZN/POLY OINT 15 GM TP ONE (22:45)
[2019-01-07] MEDS ORDERED: NEOMY/BACITRAC ZN/POLY OINT 15 GM ONE (22:53)
[2019-01-07 23:24] VITALS: BP 108/63
== END 2019-01-07 23:27 | disposition home or self-care (01) ==
LOC: ER 19:37
DX: S01.05XA Open bite of scalp, initial encounter (principal); S01.85XA Open bite of other part of head, initial encounter; S01.452A Open bite of left cheek and temporomandibular area, initial encounter; S20.37 Other superficial bite of front wall of thorax; S80.272A Other superficial bite of left knee, initial encounter; W54.0XXA Bitten by dog, initial encounter; Y93.89 Activity, other specified; Y92.89 Other specified places as the place of occurrence of the external cause; R51 Headache; F17.200 Nicotine dependence, unspecified, uncomplicated; Z59.0 Homelessness
CPT/HCPCS: 99284; 90471; 70450; 90715; 12015; 12005; J3490 ×3; J2270

== ENCOUNTER 2019-01-18 14:53 | Emergency (ER) | payer SELFPAY ==
[2019-01-18 15:24] VITALS: BP 119/84
--- NOTE | 2019-01-18 15:56 | ER Document Report ---
HPI - HPI Time Seen by Provider: 01/18/19 15:49 Context: Patient is a 63-year-old male presents emergency department for staple removal. He was here 10 days ago after being bit by dog. He is 30 alonzo in his hand. Denies any fever, body aches, or any other symptoms. Any fevers, body aches, or any other symptoms. - CONSTITUTIONAL Constitutional: DENIES: Fever, Chills - EENT EENT: DENIES: Sore Throat, Ear Pain, Nasal Drainage-Clear, Nasal Drainage- Purulent, Congestion, Eye problems - NEURO Neurology: DENIES: Headache, Weakness, Vision blurred, Dizzinesss / Vertigo - CARDIOVASCULAR Cardiovascular: DENIES: Chest pain - RESPIRATORY Respiratory: DENIES: Trouble Breathing, Coughing - REPRODUCTIVE Reproductive: DENIES: : - MUSCULOSKELETAL Musculoskeletal: DENIES: Extremity pain, Back Pain, Neck Pain, Swelling - DERM Skin Color: Normal Skin Problems: Laceration - Multiple healed to the face and scalp Past Medical History - General Information source: Patient - Social History Smoking Status: Unknown if Ever Smoked Family History: Reviewed & Not Pertinent Renal/ Medical History: Denies: Hx Peritoneal Dialysis Psychiatric Medical History: Denies: Hx Depression Past Surgical History: Reports: Hx Bowel Surgery - 12 ft of bowel removed Vertical Provider Document - CONSTITUTIONAL Agree With Documented VS: Yes Exam Limitations: No Limitations General Appearance: No Apparent Distress - INFECTION CONTROL TRAVEL OUTSIDE OF THE [place] IN LAST 30 DAYS: No - HEENT HEENT: Normocephalic, PERRLA. negative: Atraumatic - 30 alonzo noted to scalp and 13 she was noted to left side of face - NECK Neck: Normal Inspection, Supple - RESPIRATORY Respiratory: No Respiratory Distress - CARDIOVASCULAR Cardiovascular: Regular Rate Pulses: Normal: Radial - MUSCULOSKELETAL/EXTREMETIES Musculoskeletal/Extremeties: FROM - NEURO Level of Consciousness: Awake, Alert, Appropriate - DERM Integumentary: Laceration - Healed with sutures and alonzo in place Course - Re-evaluation Re-evalutation: 01/18/19 Sutures and alonzo were removed here in the emergency department. Patient tolerated the procedure well. Patient will follow-up with primary care provider as needed. Follow-up precautions were given. Verbal discharge instructions were given to the patient. They verbalized understanding. They are stable for discharge. - Vital Signs Vital signs: Temp Pulse Resp BP Pulse Ox 98.2 F 101 H 20 119/84 96 01/18/19 15:23 01/18/19 15:23 01/18/19 15:23 01/18/19 15:23 01/18/19 15:23 Discharge - Discharge Clinical Impression: Visit for suture removal, Removal of staple Condition: Stable Disposition: HOME, SELF-CARE Additional Instructions: You were seen today in the emergency department for suture and staple removal. Please follow-up with your primary care provider as needed.
== END 2019-01-18 16:45 | disposition home or self-care (01) ==
LOC: ER 14:53
DX: Z48.02 Encounter for removal of sutures (principal)
CPT/HCPCS: 99281

== ENCOUNTER 2019-10-04 12:29 | Emergency (ER) | payer SELFPAY ==
[2019-10-04 12:39] VITALS: BP 100/63
--- NOTE | 2019-10-04 12:53 | ER Document Report ---
ED Medical Screen (RME) - General Chief Complaint: Leg Pain Stated Complaint: LEG/FEET NUMBNESS Time Seen by Provider: 10/04/19 12:53 Information source: Patient Notes: This 63-year-old male presented to the emergency room today with right lower extremity pain which is been ongoing for about 2 years he states that over the last couple of weeks it has become more tender and inflamed to the right lower extremity posteriorly. TRAVEL OUTSIDE OF THE [place] IN LAST 30 DAYS: No - Related Data Allergies/Adverse Reactions: No Known Allergies Allergy (Verified 10/04/19 12:45) Past Medical History - Social History Frequency of alcohol use: None Drug Abuse: None Renal/ Medical History: Denies: Hx Peritoneal Dialysis Psychiatric Medical History: Denies: Hx Depression Past Surgical History: Reports: Hx Bowel Surgery - 12 ft of bowel removed Physical Exam - Vital signs Vitals: Temp Pulse Resp BP Pulse Ox 98.6 F 69 14 100/63 95 10/04/19 12:38 10/04/19 12:38 10/04/19 12:38 10/04/19 12:38 10/04/19 12:38 Course - Vital Signs Vital signs: Temp Pulse Resp BP Pulse Ox 98.6 F 69 14 100/63 95 10/04/19 12:46 10/04/19 12:38 10/04/19 12:38 10/04/19 12:38 10/04/19 12:38
[2019-10-04 13:34] LABS: APPEARANCE,URINE CLEAR; BILIRUBIN,URINE NEGATIVE (NEGATIVE); COLOR,URINE YELLOW; GLUCOSE, URINE NEGATIVE (NEGATIVE); KETONES,URINE NEGATIVE (NEGATIVE); LEUKOCYTE ESTERASE,URINE NEGATIVE (NEGATIVE); NITRITE,URINE NEGATIVE (NEGATIVE); PROTEIN,URINE NEGATIVE (NEGATIVE); URINE SPECIFIC GRAVITY 1.003; UROBILINOGEN,URINE NEGATIVE mg/dL (<2.0)
== END 2019-10-04 13:34 | disposition left against medical advice (07) ==
LOC: ER 12:29
DX: Z53.20 Procedure and treatment not carried out because of patient's decision for unspecified reasons (principal); M79.604 Pain in right leg
CPT/HCPCS: 81001; 99281

== ENCOUNTER 2019-10-04 14:26 | Emergency (ER) | payer SELFPAY ==
[2019-10-04 14:35] VITALS: BP 120/72
--- NOTE | 2019-10-04 15:07 | ER Document Report ---
ED Medical Screen (RME) - General Chief Complaint: Swelling of Lower Extremity Stated Complaint: LEG SWELLING Notes: Patient is a 63-year-old white male who is status post right hip surgery, 2 years ago, who presents with complaints of chronic right lower extremity swe lling and pain. He states he refused PT status post surgery and now walks with a cane. He states that his son wants him to stop walking with a cane so he sent him here for evaluation. Patient also states that he has chronic numbness in the bilateral hands and feet. He denies any new injuries, falls or trauma. No chest pain or shortness of breath. I have treated and performed a rapid initial assessment of this patient. A comprehensive ED assessment and evaluation of the patient, analysis of test results and completion of medical decision making process will be conducted by additional ED providers. PHYSICAL EXAMINATION: GENERAL: Well-appearing, well-nourished and in no acute distress. A&Ox4. Answers questions appropriately. TRAVEL OUTSIDE OF THE [place] IN LAST 30 DAYS: No - Related Data Allergies/Adverse Reactions: No Known Allergies Allergy (Verified 10/04/19 14:53) Past Medical History - Social History Frequency of alcohol use: None Drug Abuse: None Renal/ Medical History: Denies: Hx Peritoneal Dialysis Psychiatric Medical History: Denies: Hx Depression Past Surgical History: Reports: Hx Bowel Surgery - 12 ft of bowel removed, Hx O rthopedic Surgery - HIP SURGERY Physical Exam - Vital signs Vitals: Temp 98.6 F 10/04/19 14:27 Course - Vital Signs Vital signs: Temp Pulse Resp BP Pulse Ox 98.6 F 92 14 120/72 95 10/04/19 14:34 10/04/19 14:34 10/04/19 14:34 10/04/19 14:34 10/04/19 14:34
[2019-10-04 15:59] LABS: ABSOLUTE LYMPHOCYTES (AUTO) 1.8 10^3/uL (0.5-4.7); ABSOLUTE MONOCYTES (AUTO) 0.3 10^3/uL (0.1-1.4); ABSOLUTE NEUT (AUTO) 2.3 10^3/uL (1.7-8.2); BASOPHILS % (AUTO) 1.1 % (0-2); EOSINOPHILS % (AUTO) 0.9 % (0-6); HEMATOCRIT 36.8 % (37.9-51.0); HEMOGLOBIN 13.2 g/dL (13.5-17.0); LYMPHOCYTES % (AUTO) 39.4 % (13-45); MEAN CORPUSCULAR HEMOGLOBIN 39.5 pg (27.0-33.4); MEAN CORPUSCULAR HGB CONC 35.8 g/dL (32.0-36.0); MEAN CORPUSCULAR VOLUME 110 fl (80-97); MONOCYTES % (AUTO) 7.3 % (3-13); PLATELET COUNT 149 10^3/uL (150-450); RED BLOOD COUNT 3.34 10^6/uL (4.35-5.55); RED CELL DISTRIBUTION WIDTH 14.1 % (11.5-14.0); SEGMENTED NEUTROPHILS % (AUTO) 51.3 % (42-78); TOTAL CELLS COUNTED % (AUTO) 100 %; WHITE BLOOD COUNT 4.5 10^3/uL (4.0-10.5)
[2019-10-04 16:06] LABS: INTERNATIONAL RATION (INR) 1.05; PARTIAL THROMBOPLASTIN TIME 31.3 SEC (23.5-35.8); PROTHROMBIN TIME 13.7 SEC (11.4-15.4)
[2019-10-04 16:21] LABS: ALBUMIN 4.1 g/dL (3.5-5.0); ALKALINE PHOSPHATASE 145 U/L (38-126); ANION GAP 12 (5-19); ASPARTATE AMINO TRANSFERASE 76 U/L (17-59); BILIRUBIN,DIRECT 0.2 mg/dL (0.0-0.4); BLOOD UREA NITROGEN 3 mg/dL (7-20); CALCIUM 9.1 mg/dL (8.4-10.2); CARBON DIOXIDE 21 mmol/L (22-30); CHLORIDE 96 mmol/L (98-107); GLUCOSE 105 mg/dL (75-110); POTASSIUM 3.8 mmol/L (3.6-5.0); TOTAL PROTEIN 7.8 g/dL (6.3-8.2)
[2019-10-04 16:27] LABS: ANISOCYTOSIS SLIGHT; BURR CELLS SLIGHT; PLATELET COMMENT ADEQUATE
--- NOTE | 2019-10-04 17:25 | ER Document Report ---
ED General - General Chief Complaint: Swelling of Lower Extremity Stated Complaint: LEG SWELLING Time Seen by Provider: 10/04/19 17:16 Primary Care Provider: RACHEL ORTEGA MD [ACTIVE STAFF] - Follow up as needed JENNIFER TELLEZ MD [ACTIVE STAFF] - Follow up as needed Mode of Arrival: Ambulatory Information source: Patient TRAVEL OUTSIDE OF THE [place] IN LAST 30 DAYS: No - HPI Onset: Other - over the last several weeks Onset/Duration: Gradual Quality of pain: Achy, Other - numbness and tingling of hand and feet Severity: Mild Pain Level: Denies Associated symptoms: Other - bilateral leg swelling (right worse than left). Right calk pain Exacerbated by: Other - palpation of right calf Relieved by: Denies Similar symptoms previously: No Recently seen / treated by doctor: No Notes: 63 year old male with a history of a right hip surgery here for bilateral leg swelling (right worse than left) over the last several months as well as numbness and tingling in his hands and feet for months. The patient denies recent trauma to his hand, feet, or legs. The patient denies redness or warmth of his legs. The patient denies chest pain, shortness of breath, trouble breathing. The patient has no PCP at the moment. - Related Data Allergies/Adverse Reactions: No Known Allergies Allergy (Verified 10/04/19 18:01) Past Medical History - General Information source: Patient - Social History Smoking Status: Current Every Day Smoker Frequency of alcohol use: None Drug Abuse: None Family History: Reviewed & Not Pertinent Patient has homicidal ideation: No Renal/ Medical History: Denies: Hx Peritoneal Dialysis Psychiatric Medical History: Denies: Hx Depression Past Surgical History: Reports: Hx Bowel Surgery - 12 ft of bowel removed, Hx Orthopedic Surgery - HIP SURGERY Review of Systems - Review of Systems Constitutional: No symptoms reported EENT: No symptoms reported Cardiovascular: No symptoms reported Respiratory: No symptoms reported Gastrointestinal: No symptoms reported Genitourinary: No symptoms reported Male Genitourinary: No symptoms reported Musculoskeletal: Other - bilateral leg swelling (right much worse than left). right leg pain. Skin: No symptoms reported Hematologic/Lymphatic: No symptoms reported Neurological/Psychological: No symptoms reported -: Yes All other systems reviewed and negative Physical Exam - Vital signs Vitals: Temp 98.6 F 10/04/19 14:27 - Notes Notes: GENERAL: Well-appearing, well-nourished and in no acute distress. HEAD: Atraumatic, normocephalic. EYES: Pupils equal round and reactive to light, extraocular movements intact, sclera anicteric, conjunctiva are normal. ENT: External ears normal, nares patent, oropharynx clear without exudates. Moist mucous membranes. NECK: Normal range of motion, supple without lymphadenopathy or JVD. LUNGS: Breath sounds clear to auscultation bilaterally and equal. No wheezes rales or rhonchi. HEART: Regular rate and rhythm without murmurs, rubs or gallops. ABDOMEN: Soft, nontender, normoactive bowel sounds. No guarding, no rebound. No masses appreciated. EXTREMITIES: Mild bilateral leg edema (right slightly worse than left). No erythema or warmth of legs. 2+ PT and DP pulses bilaterally. Normal range of motion, no pitting or edema. No clubbing or cyanosis. NEUROLOGICAL: Cranial nerves II through XII grossly intact. Normal speech, normal gait. PSYCH: Normal mood, normal affect. SKIN: Warm, Dry, normal turgor, no rashes or lesions noted. Course - Re-evaluation Re-evalutation: 10/04/19 19:45 The patient seems to have mild edema of both his legs. He was told to use compression stockings and to keep his legs elevated while at rest. Patient's kidney function is normal, his LFTs are mildly elevated, and his BNP is mildly elevated. The patient had an ultrasound of his RLE which showed no acute process. The patient has no PCP so will refer to local PCPs. The patient has some slight lab abnormalities so he was given a copy of his labs and told he needs to follow up with a PCP to go over his labs. - Vital Signs Vital signs: Temp Pulse Resp BP Pulse Ox 98.6 F 92 14 120/72 95 10/04/19 14:34 10/04/19 14:34 10/04/19 14:34 10/04/19 14:34 10/04/19 14:34 - Laboratory Result Diagrams: 10/04/19 15:36 10/04/19 15:36 Laboratory results interpreted by me: 10/04/19 10/04/19 10/04/19 15:36 15:36 15:36 RBC 3.34 L Hgb 13.2 L Hct 36.8 L MCV 110 H MCH 39.5 H RDW 14.1 H Plt Count 149 L Sodium 129.3 L Chloride 96 L Carbon Dioxide 21 L BUN 3 L AST 76 H Alkaline Phosphatase 145 H NT-Pro-B Natriuret Pep 152 H - Diagnostic Test Radiology reviewed: Image reviewed, Reports reviewed Discharge - Discharge Clinical Impression: Edema of both legs Condition: Stable Disposition: HOME, SELF-CARE Instructions: Edema, Peripheral ([facility]) Additional Instructions: Wear compression stockings on your legs to help with the swelling. Also keep your legs propped up while sitting and laying down to help with swelling. You had an ultrasound of your right leg which showed no blood clots or other abnormality. You had blood work in the ER which showed normal kidney function and slightly elevated liver function.Follow up with a primary care doctor. If you dont have a primary care doctor, follow up with one of the doctors listed in your paperwork. Have your primary care doctor go over all of the lab values wh ich were obtained in the ER today. Referrals: RACHEL ORTEGA MD [ACTIVE STAFF] - Follow up as needed JENNIFER TELLEZ MD [ACTIVE STAFF] - Follow up as needed
--- NOTE | 2019-10-04 18:43 | RADIOLOGY REPORT (SQ) ---
EXAM DESCRIPTION: VENOUS UNILATERAL LOWER IMAGES COMPLETED DATE/TIME: 10/04/2019 6:35 pm REASON FOR STUDY: RLE swelling/pain COMPARISON: None. TECHNIQUE: Dynamic and static broderick scale and color images acquired of the right leg venous system. S elected spectral images acquired with additional compression and augmentation maneuvers. The contrala teral common femoral vein and saphenofemoral junction were also imaged. Images stored on PACS. LIMITATIONS: None. FINDINGS: COMMON FEMORAL: Normal phasicity, compression and augmentation. No visualized echogenic ma terial on broderick scale. No defects on color images. FEMORAL: Normal compression and augmentation. No visualized echogenic material on broderick scale. No defe cts on color images. POPLITEAL: Normal compression, augmentation. No visualized echogenic material on broderick scale. No defec ts on color images. CALF VESSELS: Normal compression, augmentation. No visualized echogenic material on broderick scale. No de fects on color images. GSV and SSV: Normal compression, augmentation. No visualized echogenic material on broderick scale. No def ects on color images. ANY DEEP VENOUS INSUFFICIENCY: Not evaluated. ANY EVIDENCE OF POPLITEAL CYST: No. OTHER: No other significant finding. CONTRALATERAL COMMON FEMORAL VEIN AND SAPHENOFEMORAL JUNCTION: Normal phasicity, compression and augmentation. No visualized echogenic material on broderick scale. No de fects on color images. IMPRESSION: NO EVIDENCE DVT OR SVT IN THE RIGHT LEG. TECHNICAL DOCUMENTATION: JOB ID: [id number] 2010 [employer]- All Rights Reserved Reading location - IP/workstation name: [email or web address]
== END 2019-10-04 20:00 | disposition home or self-care (01) ==
LOC: ER 14:26
DX: R60.0 Localized edema (principal); M79.604 Pain in right leg; F17.200 Nicotine dependence, unspecified, uncomplicated
CPT/HCPCS: 36415; 80053; 83880; 85025; 85610; 85730; 93971; 99284